=== PATIENT | male | born 1980 | race Caucasian/White ===

== ENCOUNTER 2018-01-16 11:25 | Inpatient (IN) | payer OTHER ==
[~2018-01-16] VITALS: Ht 177.8 cm; Wt 129.7 kg
[2018-01-16 11:54] VITALS: BP 139/105
--- NOTE | 2018-01-16 12:30 | NUR ---
patient is a 37 year old male who was brought in for worsening left leg cellulits. per patient, this began on 01/15 which he sought medical treatment at [facility] and was prescribed po antibiotic. He went to see his primary today and due to his current condition, recommended to come to ER for further treatment. patient is alert and oriented x 4. respirations are even and unlabored. patient denies any cough, dyspnea, n,v,d. per patient has been experiencing cold sweats and fever. patient states pain is present when ambulating. noted erythema, swelling and heat to left lower leg. no drainage present at this time. awaiting md evaluation.
[2018-01-16] MEDS ORDERED: NACL 0.9% 2,000 ML IV SCH (12:49)
--- NOTE | 2018-01-16 12:49 | NUR ---
Dr. Antonio at bedside for examination.
[2018-01-16] MEDS ORDERED: CLINDAMYCIN 900 MG in DEXTROSE 5% 100 ML IV ONE (12:50)
[2018-01-16] MEDS ORDERED: PIPERACILLIN/TAZOBACTAM 3.375 GM in DEXT 5% MINI-BAG PLUS 50 ML IV ONE (12:50)
[2018-01-16] MEDS ORDERED: DEXAMETHASONE 10 MG/ML VIAL IVP ONE (12:50)
[2018-01-16] MEDS ORDERED: PIPERACILLIN/TAZOBACTAM 3.375 GM VIAL IV ONE (13:22)
[2018-01-16] MEDS ORDERED: CLINDAMYCIN 900 MG/6 ML VIAL IV ONE (13:23)
[2018-01-16 13:36] LABS: BASOPHILS # (AUTO) 0.1 K/uL (0.00-0.22); BASOPHILS % (AUTO) 0.8 % (0.0-2.0); EOSINOPHILS # (AUTO) 0.2 K/uL (0-0.4); EOSINOPHILS % (AUTO) 1.4 % (0.0-4.0); HEMATOCRIT 45.2 % (36-52); LYMPHOCYTES # (AUTO) 1.1 K/uL (2.0-11.5); LYMPHOCYTES % (AUTO) 9.6 % (20.5-51.1); MEAN CORPUSCULAR HEMOGLOBIN 28 pg (27-31); MEAN CORPUSCULAR HGB CONC 33 g/dL (33-37); MEAN CORPUSCULAR VOLUME 85 fL (80-94); MONOCYTES # (AUTO) 1.1 K/uL (0.8-1.0); MONOCYTES % (AUTO) 10.1 % (1.7-9.3); NEUTROPHILS # (AUTO) 8.8 K/uL (1.8-7.7); NEUTROPHILS % (AUTO) 78.1 % (42.2-75.2); PLATELET COUNT (AUTO) 226 K/uL (140-450); RED BLOOD CELL COUNT(AUTO) 5.32 MIL/uL (4.20-6.10); RED CELL DISTRIBUTION WIDTH 12.5 % (11.6-13.7); WHITE BLOOD COUNT (AUTO) 11.3 K/uL (4.8-10.8)
--- NOTE | 2018-01-16 13:45 | NUR ---
xray at bedside.
[2018-01-16] MEDS: NACL 0.9% 1,000 ML IV SCH (13:52)
[2018-01-16 13:54] LABS: ANION GAP 15.4 (8-16); CARBON DIOXIDE 21.5 mmol/L (21-32); CREATININE 1.3 mg/dL (0.7-1.3); POTASSIUM 3.9 mmol/L (3.5-5.1)
[2018-01-16] MEDS ORDERED: ACETAMINOPHEN 325 MG TAB PO PRN (13:55)
[2018-01-16] MEDS ORDERED: ONDANSETRON 4 MG/2 ML VIAL IVP PRN (13:55)
[2018-01-16 13:58] LABS: PROTHROMBIN TIME 10.5 secs (10.8-13.4)
[2018-01-16 14:00] LABS: ALBUMIN 3.3 g/dL (3.4-5.0); TOTAL BILIRUBIN 0.6 mg/dL (0.0-1.0)
[2018-01-16 16:17] VITALS: BP 140/90
--- NOTE | 2018-01-16 16:20 | NUR ---
RECEIVED PT ON UNIT VIA [employer]. PT IS AAOX4, USES CRUTCHES TO AMBULATE, PT HAS IV ON THE LEFT AC AND RIGHT AC, PATENT, INTACT, FLUSHING WELL, NO S/S OF RESPIRATORY DISTRESS OR DISCOMFORT NOTED, PT HAS LEFT LOWER EXT. CELLULITIS, ORIENTED PT TO ROOM ,DISCUSSED PLAN OF CARE WITH PT, PT VERBALIZED UNDERSTANDING, CALL LIGHT IS WITHIN REACH, WILL CONTINUE TO MONITOR.
--- NOTE | 2018-01-16 16:26 | NUR ---
Patient will be admitted to care of DR. YEPEZ. Admited to Med/Surg. Will go to room 104-B. Belongings list completed. Report to DAMIAN LE.
--- NOTE | 2018-01-16 19:30 | NUR ---
ENDORSED PT TO WAREHOUSE FREIGHT HANDLER NURSE FOR CONTINUITY OF CARE. PT STABLE AT THIS TIME.
--- NOTE | 2018-01-16 19:31 | NUR ---
RECEIVED REPORT FROM DAY NURSE REY SALGADO. PT IN STABLE CONDITION AAOX4 ON RA. RR EVEN/UNLABORED. NO S/S OF DISTRESS NOTED. IV TO R AC 18G PATENT AND INTACT, AND L AC 22G PATENT AND INTACT. REDNESS AND SWELLING NOTED ON L LEG, SKIN INTACT. SKIN IS WARM AND DRY TO TOUCH, LUNGS CLEAR BILATERALLY. INITIAL ASSESSMENT COMPLETED. PLAN OF CARE DISCUSSED WITH PT AND AT THE BEDSIDE, ALL SAFETY PRECAUTIONS MET, CALL LIGHT WITHIN REACH, BOARD UPDATED, WILL CONTINUE TO MONITOR
[2018-01-16 20:00] VITALS: BP 153/99
--- NOTE | 2018-01-16 20:00 | NUR ---
DR. BARAJAS MADE AWARE OF PTS B/P 153/99. PHYSICIAN WILL SEE PT.
--- NOTE | 2018-01-16 20:15 | NUR ---
DR. BARAJAS IN TO SEE PT
--- NOTE | 2018-01-16 20:30 | NUR ---
RT AC IV REMOVED, NO LONGER FLUSHING. TIP INTACT, NO S/S OF DISTRESS
[2018-01-16] MEDS: CLINDAMYCIN 600 MG in DEXTROSE 5% 50 ML IV SCH (21:25)
[2018-01-16] MEDS: DOCUSATE SODIUM 100 MG GELCAP PO SCH (21:25)
--- NOTE | 2018-01-16 21:25 | NUR ---
DUE MEDICATIONS GIVEN, EDUCATION PROVIDED, PT TOLERATED, WILL CONTINUE TO MONITOR.
--- NOTE | 2018-01-16 22:11 | NUR ---
PT HAS EPISODE OF VOMITING. SCANT AMOUNT NOTED OF CLEAR LIQUID NOTED. ZOFRAN ADMINISTERED
--- NOTE | 2018-01-16 23:30 | NUR ---
PT AMBULATING AROUND THE UNIT WITH AT HIS SIDE, PT TOLERATING WELL
[2018-01-17] VITALS: BP 135/85
--- NOTE | 2018-01-17 | NUR ---
PT RESTING IN BED COMFORTABLY, AT THE BEDSIDE. VSS
--- NOTE | 2018-01-17 03:00 | NUR ---
PT RESTING COMFORTABLY IN BED. RR EVEN/UNLABORED. NO S/S OF DISTRESS NOTED
[2018-01-17 04:00] VITALS: BP 120/78
[2018-01-17] MEDS: CLINDAMYCIN 600 MG in DEXTROSE 5% 50 ML IV SCH ×3 (05:34→21:11)
[2018-01-17 06:34] LABS: HEMATOCRIT 42.3 % (36-52); HEMOGLOBIN 14.1 g/dL (12.0-18.0); MEAN CORPUSCULAR HEMOGLOBIN 29 pg (27-31); MEAN CORPUSCULAR HGB CONC 33 g/dL (33-37); MEAN CORPUSCULAR VOLUME 86 fL (80-94); PLATELET COUNT (AUTO) 226 K/uL (140-450); RED BLOOD CELL COUNT(AUTO) 4.91 MIL/uL (4.20-6.10); RED CELL DISTRIBUTION WIDTH 12.7 % (11.6-13.7); WHITE BLOOD COUNT (AUTO) 13.3 K/uL (4.8-10.8)
[2018-01-17 07:07] LABS: ANION GAP 14.2 (8-16); CARBON DIOXIDE 21.2 mmol/L (21-32); CREATININE 1.1 mg/dL (0.7-1.3); POTASSIUM 4.4 mmol/L (3.5-5.1)
[2018-01-17 07:10] LABS: MAGNESIUM 2.2 mg/dL (1.8-2.4); PHOSPHORUS 2.9 mg/dL (2.5-4.9)
--- NOTE | 2018-01-17 07:36 | NUR ---
BEDSIDE REPORT GIVEN TO ROSALIA RN FOR CONTINUITY OF CARE, PT IN STABLE CONDITION
--- NOTE | 2018-01-17 07:37 | NUR ---
RECEIVED REPORT FROM STUDENT SERVICES REPRESENTATIVE RN AT BEDSIDE FOR CONTINUITY OF CARE. PT IN STABLE CONDITION, AAOX4 ON RA. RESPIRATIONS EVEN/UNLABORED. NO S/S OF DISTRESS NOTED. PATIENT DENIES PAIN. IV TO L AC 22G PATENT, INTACT, AND ASYMPTOMATIC. REDNESS AND SWELLING NOTED ON L LEG, SKIN INTACT. SKIN IS WARM AND DRY TO TOUCH, LUNGS CLEAR BILATERALLY. INTRODUCED MYSELF AND UPDATED THE BOARD. SAFETY PRECAUTIONS IN PLACE, CALL LIGHT WITHIN REACH, WILL CONTINUE TO MONITOR PATIENT.
[2018-01-17 07:39] LABS: LYMPHOCYTES % (MANUAL) 9 % (20-46)
[2018-01-17 07:40] LABS: MONOCYTES % (MANUAL) 8 % (5-12)
--- NOTE | 2018-01-17 07:57 | NUR ---
PATIENT HAS BEEN SCREENED AND CATEGORIZED HIGH NUTRITION RISK. PATIENT WILL BE SEEN WITHIN 1-2 DAYS OF ADMISSION. 01/17/18 - 01/18/18 ANASTASIA WATT MBA, RD
--- NOTE | 2018-01-17 07:57 | NUR ---
DOCTOR IN TO SEE THE PATIENT. WILL AWAIT FOR NEW ORDERS.
[2018-01-17 08:00] VITALS: BP 128/91
[2018-01-17] MEDS: LACTOBACILLUS RHAMNOSUS GG 1 EACH CAP PO SCH (08:39)
[2018-01-17] MEDS: DOCUSATE SODIUM 100 MG GELCAP PO SCH ×2 (08:39→21:09)
--- NOTE | 2018-01-17 08:40 | NUR ---
ADMINISTERED ORDERED MEDICATIONS, PATIENT TOLERATED THEM WELL. NO SIGNS OF DISTRESS OR SOB NOTED, PATIENT DENIES PAIN. UPDATED PATIENT ON PLAN OF CARE, PATIENT AND HIS VERBALIZED UNDERSTANDING. REQUESTED PATIENT FOR URINE SAMPLE, PATIENT VERBALIZED UNDERSTANDING. SAFETY PRECAUTION IN PLACE, CALL LIGHT WITHIN REACH. WILL CONTINUE TO MONITOR PATIENT.
[2018-01-17] MEDS: NACL 0.9% 1,000 ML IV SCH ×2 (09:52→16:16)
--- NOTE | 2018-01-17 10:05 | NUR ---
01/17/18 RD INITIAL ASSESSMENT COMPLETED PLEASE REFER TO NUTRITION ASSESSMENT UNDER CARE ACTIVITY FOR ESTIMATED NUTRITIONAL NEEDS. RD RECOMMENDATIONS: 1- RECOMMEND CONTINUE REGULAR DIET 2- RD FOLLOW UP 3-5 DAYS; MODERATE RISK ANASTASIA WATT MBA, RD
[2018-01-17 12:00] VITALS: BP 125/77
--- NOTE | 2018-01-17 12:45 | NUR ---
PATIENT EATING LUNCH, AT BEDSIDE. NO SIGNS OF DISTRESS OR SOB NOTED. DENIES PAIN. SAFETY PRECAUTION IN PLACE, CALL LIGHT WITHIN REACH. WILL CONTINUE TO MONITOR PATIENT.
--- NOTE | 2018-01-17 13:54 | NUR ---
DR. AMES IN TO SEE THE PATIENT. FAMILY AT BEDSIDE. PATIENT RESTING IN BED, NO SIGNS OF DISTRESS OR SOB NOTED. FLACC-0. SAFETY PRECAUTION IN PLACE, BED ALARM ON, BED ON LOWEST SETTING, CALL LIGHT WITHIN REACH. WILL CONTINUE TO MONITOR PATIENT. Addendum: 01/17/18 at 1518 by Vidal Cunningham RN WRONG PATIENT.
--- NOTE | 2018-01-17 14:05 | NUR ---
PATIENT RESTING IN BED, WATCHING TV. AT BEDSIDE. NO SIGNS OF DISTRESS OR SOB NOTED. DENIES PAIN. SAFETY PRECAUTION IN PLACE, CALL LIGHT WITHIN REACH. WILL CONTINUE TO MONITOR PATIENT.
[2018-01-17 15:49] LABS: APPEARANCE,URINE CLEAR (CLEAR); BILIRUBIN,URINE NEGATIVE (NEGATIVE); BLOOD, URINE 1+ (NEGATIVE); COLOR,URINE YELLOW (YELLOW); LEUKOCYTE ESTERASE ,URINE NEGATIVE (NEGATIVE); NITRITE, URINE NEGATIVE (NEGATIVE); UGLUCOSE NEGATIVE (NEGATIVE)
[2018-01-17 15:54] LABS: RBC,URINE 3-10 (FEW) /HPF (0-5); WBC,URINE 0-5 (RARE) /HPF (0-5)
[2018-01-17 16:00] VITALS: BP 117/78
--- NOTE | 2018-01-17 17:45 | NUR ---
PATIENT EATING DINNER, AND FAMILY MEMBER AT BEDSIDE. NO SIGNS OF DISTRESS OR SOB NOTED. DENIES PAIN. SAFETY PRECAUTION IN PLACE, CALL LIGHT WITHIN REACH. WILL CONTINUE TO MONITOR PATIENT.
--- NOTE | 2018-01-17 19:20 | NUR ---
REPORT GIVEN TO INSTRUMENT TESTER NURSE AT BEDSIDE FOR CONTINUITY OF CARE. PATIENT IN STABLE CONDITION.
--- NOTE | 2018-01-17 19:21 | NUR ---
RECEIVED REPORT FROM DAY NURSE ROSALIA RN. PT IN STABLE CONDITION AAOX4 ON RA. RR EVEN/UNLABORED. NO S/S OF DISTRESS NOTED. IV TO L AC 22G PATENT AND INTACT. REDNESS AND SWELLING NOTED ON L LEG, SKIN INTACT. SKIN IS WARM AND DRY TO TOUCH, LUNGS CLEAR BILATERALLY. INITIAL ASSESSMENT COMPLETED. PLAN OF CARE DISCUSSED WITH PT AND AT THE BEDSIDE, ALL SAFETY PRECAUTIONS MET, CALL LIGHT WITHIN REACH, BOARD UPDATED, WILL CONTINUE TO MONITOR
[2018-01-17 20:00] VITALS: BP 124/77
--- NOTE | 2018-01-17 21:11 | NUR ---
DUE MEDICATIONS GIVE, EDUCATION PROVIDED. PT VERBALIZED UNDERSTANDING AND TOLERATED WELL. WILL CONTINUE TO MONITOR
--- NOTE | 2018-01-17 22:30 | NUR ---
PT AMBULATING AROUND THE UNIT WITH AT HIS SIDE, PT TOLERATING WELL
[2018-01-18] VITALS: BP 126/74
--- NOTE | 2018-01-18 02:30 | NUR ---
PT RESTING IN BED COMFORTABLY WITH AT THE BEDSIDE, NO S/S OF DISTRESS NOTED
[2018-01-18 04:00] VITALS: BP 128/78
[2018-01-18] MEDS: CLINDAMYCIN 600 MG in DEXTROSE 5% 50 ML IV SCH (05:31)
[2018-01-18 06:55] LABS: BASOPHILS # (AUTO) 0.1 K/uL (0.00-0.22); BASOPHILS % (AUTO) 1.2 % (0.0-2.0); EOSINOPHILS # (AUTO) 0.2 K/uL (0-0.4); EOSINOPHILS % (AUTO) 1.9 % (0.0-4.0); MEAN CORPUSCULAR HEMOGLOBIN 29 pg (27-31); MEAN CORPUSCULAR HGB CONC 33 g/dL (33-37); MEAN CORPUSCULAR VOLUME 87 fL (80-94); MONOCYTES # (AUTO) 0.7 K/uL (0.8-1.0); MONOCYTES % (AUTO) 7.7 % (1.7-9.3); NEUTROPHILS # (AUTO) 6.4 K/uL (1.8-7.7); NEUTROPHILS % (AUTO) 68.2 % (42.2-75.2); PLATELET COUNT (AUTO) 268 K/uL (140-450); RED BLOOD CELL COUNT(AUTO) 4.86 MIL/uL (4.20-6.10); RED CELL DISTRIBUTION WIDTH 13.2 % (11.6-13.7); WHITE BLOOD COUNT (AUTO) 9.4 K/uL (4.8-10.8)
[2018-01-18 07:32] LABS: ANION GAP 13.7 (8-16); CARBON DIOXIDE 23.3 mmol/L (21-32); CREATININE 1.1 mg/dL (0.7-1.3)
--- NOTE | 2018-01-18 07:34 | NUR ---
REPORT GIVEN TO DAY NURSE FOR CONTINUITY OF CARE, PT IN STABLE CONDITION.
--- NOTE | 2018-01-18 07:35 | NUR ---
RECEIVED REPORT FROM ORACLE ADF DEVELOPER RN AT BEDSIDE FOR CONTINUITY OF CARE. PT IN STABLE CONDITION, AAOX4 ON RA. RESPIRATIONS EVEN/UNLABORED. NO S/S OF DISTRESS NOTED. PATIENT DENIES PAIN. IV TO L AC 22G PATENT, INTACT, AND ASYMPTOMATIC. REDNESS AND SWELLING NOTED ON L LEG, SKIN INTACT. SKIN IS WARM AND DRY TO TOUCH, LUNGS CLEAR BILATERALLY. UPDATED THE BOARD. SAFETY PRECAUTIONS IN PLACE, CALL LIGHT WITHIN REACH, WILL CONTINUE TO MONITOR PATIENT.
[2018-01-18 07:45] LABS: MAGNESIUM 2.1 mg/dL (1.8-2.4); PHOSPHORUS 3.9 mg/dL (2.5-4.9)
[2018-01-18 08:00] VITALS: BP 134/88
[2018-01-18] MEDS: DOCUSATE SODIUM 100 MG GELCAP PO SCH (08:49)
[2018-01-18] MEDS: LACTOBACILLUS RHAMNOSUS GG 1 EACH CAP PO SCH (08:50)
--- NOTE | 2018-01-18 08:57 | NUR ---
ADMINISTERED ORDERED MEDICATIONS. PATIENT TOLERATED THEM WELL. NO SIGNS OF DISTRESS OR SOB NOTED. PATIENT DENIES PAIN. SAFETY PRECAUTION IN PLACE, CALL LIGHT WITHIN REACH. WILL CONTINUE TO MONITOR PATIENT.
--- NOTE | 2018-01-18 10:05 | NUR ---
PT AMBULATING IN HALLWAY ON CRUTCHES WITH BY SIDE. GAIT STEADY. NO SIGNS OF DISTRESS OR SOB NOTED. WILL CONTINUE TO MONITOR PATIENT.
[2018-01-18] MEDS ORDERED: LACT-2 (11:13)
[2018-01-18] MEDS ORDERED: CLIN300C2 PO (11:13)
[2018-01-18 12:00] VITALS: BP 122/79
--- NOTE | 2018-01-18 12:00 | NUR ---
DISCHARGE INSTRUCTION AND EDUCATION GIVEN. IV REMOVED, CATHETER INTACT, ID BANDS CUT,TELE MONITOR TAKEN OFF. RASH NOTICED ON LEFT FOREARM. DR. RAMIREZ NOTIFIED. HE CAME AND ASSESSED. PRESCRIPTION OF ANTIBIOTICS CHANGED. PATIENT AND HIS VERBALIZED UNDERSTANDING THAT IF RASH GETS WORSE, PATIENT WILL GO TO THE ER. PATIENT IS CHANGING AND WAITING TO EAT LUNCH BEFORE HE GET DISCHARGED. Addendum: 01/18/18 at 1738 by Vidal Cunningham RN PHOTOS OF LEFT LOWER LEG CELLULITIS TAKEN.
--- NOTE | 2018-01-18 12:45 | NUR ---
PATIENT AMBULATED OFF OF FLOOR ON CRUTCHES ACCOMPANIED BY HIS . ALL BELONGINGS TAKEN. PATIENT IN STABLE CONDITION.
[2018-01-18] MEDS ORDERED: DOXY100C9 PO (12:52)
--- NOTE | 2018-01-20 07:46 | NUR ---
PER ALEXIS, EXTRUDER, FAX RETRO TO [facility] AT [phone] PHONE MARGIE [phone]. FAXED H&P, ER REPORT, PROGRESS NOTES AND DISCHARGE INSTRUCTIONS TO [facility].
== END 2018-01-18 12:45 | disposition home or self-care (01) | DRG 602 ==
LOC: MED 11:25 → MTU 13:52
PROVIDERS: ADMIT Family Medicine Sports Medicine; ATTEND Family Medicine Sports Medicine
DX: L03.116 Cellulitis of left lower limb (principal); N17.0 Acute kidney failure with tubular necrosis; E46 Unspecified protein-calorie malnutrition; E11.22 Type 2 diabetes mellitus with diabetic chronic kidney disease; E87.1 Hypo-osmolality and hyponatremia; B35.1 Tinea unguium; Z68.41 Body mass index [BMI] 40.0-44.9, adult; E66.01 Morbid (severe) obesity due to excess calories; N18.9 Chronic kidney disease, unspecified; Z72.89 Other problems related to lifestyle; A46 Erysipelas
CPT/HCPCS: 36415; 71045; 76881; 80048; 80053; 81001; 82150; 82550; 82553; 83036; 83605; 83690; 83735; 83874; 83880; 84100; 84439; 84443; 84484; 85025; 85379; 85610; 85730; 87040; 87081; 87086; 93971; 96365; 96375; 99285; J1100; J1644; J2405; J2543; J3490; J7030; J7060; Q0092